=== PATIENT | female | born 1965 | race African-American/Black ===

== ENCOUNTER 2018-09-23 06:48 | Day surgery (SDC) | payer OTHER ==
[2018-09-23] MEDS ORDERED: MIDAZOLAM 1 MG/ML 2 ML INJ ×2 (09:06→09:07)
[2018-09-23] MEDS ORDERED: FENTAnyl 50 MCG/ML VIAL (09:06)
== END 2018-09-23 12:31 | disposition home or self-care (01) ==
LOC: GIL 06:48
DX: Z12.11 Encounter for screening for malignant neoplasm of colon (principal); K64.8 Other hemorrhoids
CPT/HCPCS: 45378